=== PATIENT | female | born 1950 | race Caucasian/White ===

== ENCOUNTER 2017-09-11 07:10 | Emergency (ER) | payer OTHER, BC, MEDICARE ==
[~2017-09-11] VITALS: Ht 162.6 cm; Wt 56.2 kg
[~2017-09-11 07:10] MED LIST: ALBUTEROL 3 ML3 ML INH; ALPHA LIPOIC AC50 MG PO; AMITIZA8 MCG PO; AUGMENTIN 500M500 MG PO; BACLOFEN10 M1 PO; BENTYL10 M1 PO; BIAXIN FILMTAB500 MG PO; BOTOX200 UNIT IM; BUDESONIDE EC3 MG PO; CALCIUM 600600 M1 PO; CALCIUM600 M2 PO; CLOBETASOL PROP50 M1 TOP; COLACE100 M1 PO; CYMBALTA 30 MG30 MG PO; CYMBALTA60 M1 PO; Calcium Carbonate 600 MG Tab PO; DIAZEPAM2 M1 PO; DIAZEPAM2 MG PO; DILTIAZEM HCL30 M1 PO; DILTIAZEM HCL30 MG PO; EFFEXOR XR75 M1 PO; EFFEXOR-XR75 MG PO; FISH OIL 1,2001 EACH PO; FLUOCINOLON118.28 M1 TOP; GABAPENTIN100 M2 PO; GABAPENTIN600 M1 PO; LIDODERM 5% PAT1 PAT TOP; LIORESAL 10MG T10 MG PO; MASON NATURAL1200 MG PO; MIRALAX17 G1 PO; MODAFINIL200 M1 PO; MODAFINIL200 MG PO; MULTI-DAY VITA1 EACH PO; MULTIVITAMIN1 TAB PO; NIZORAL120 ML TOP; OMEPRAZOLE20 M2 PO; PHARMASSURE MA500 MG PO; PROBIOTIC FORMU1 CAP PO; PROBIOTIC1 EACH PO; SUPER B COMPLE150 MG PO; SYNTHROID0.05 MG PO; SYNTHROID50 MCG PO; TEGRETOL 100MG100 MG PO; TRAMADOL HCL50 M1 PO; VAGIFEM10 MC1 VAG; VAGIFEM10 MCG VAG; VITAMIN B-121000 MC3 PO; VITAMIN B121000 MC2 PO; VITAMIN B121000 MCG PO; VITAMIN D32000 I1 PO; VITAMIN D35000 UNI1 PO; WELLBUTRIN SR100 M2 PO; ZOFRAN ODT4 M1 SL
--- NOTE | 2017-09-11 07:25 | ED CARDIAC/CP/PALPITATIONS ---
History of Present Illness General Chief Complaint: Palpitations Stated Complaint: BIBA FOR PALP Source: patient, EMS Exam Limitations: no limitations Vital Signs & Intake/Output Vital Signs & Intake/Output Vital Signs Date Time Temp Pulse Resp B/P B/P Pulse O2 O2 Flow FiO2 Mean Ox Delivery Rate 09/11 1117 98.3 56 20 110/56 99 Room Air 09/11 0855 60 20 109/56 97 Room Air 09/11 0729 97.0 68 20 136/80 09/11 0714 97.0 136 20 130/86 100 Room Air Allergies Coded Allergies: epinephrine (Severe, "MAKES ME SICK" 04/04/16) Penicillins (RASH 08/29/15) gluten (GLUTEN SENSITIVE 08/29/15) lactose (LACTOSE INTOLERANT 08/29/15) Reconcile Medications Baclofen 20 MG TABLET 1 TAB PO TID MUSCLE SPASMS (Reported) Dextroamphetamine/Amphetamine (Dextroamp-Amphetamin 10 MG Tab) 10 MG TABLET 1 TAB PO BID MENTAL HEALTH (Reported) Diazepam 2 MG TABLET 0.5 TAB PO TID MUSCLE SPASMS/ANXIETY (Reported) Duloxetine HCl (Cymbalta) 60 MG CAPSULE.DR 1 CAP PO QAM MENTAL HEALTH ( Reported) Levothyroxine Sodium (Synthroid) 50 MCG TABLET 1 TAB PO DAILY AC THYROID ( Reported) Pantoprazole Sodium 40 MG TABLET.DR 1 TAB PO DAILY GI (Reported) Tramadol HCl 50 MG TABLET 1 TAB PO BID PAIN (Reported) Venlafaxine HCl (Effexor XR) 75 MG CAP.ER.24H 1 CAP PO QAM MENTAL HEALTH ( Reported) Triage Nurses Notes Reviewed? yes Onset: Abrupt Duration: hour(s):, constant, continues in ED, getting worse Quality/Severity: severe HPI: Patient presents for evaluation of worsening shortness of breath and heart palpitations that began earlier this morning. Patient states she's had a prior episode but not quite this intense. History is somewhat limited secondary to the patient's symptoms and also her history of multiple sclerosis with severe back pain. Past History Travel History Traveled to [place] past 21 day No Medical History Any Pertinent Medical History? 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 MOTHER (CJD). Hx Contributory? No Review of Systems Review of Systems Constitutional: Reports: no symptoms. EENTM: Reports: no symptoms. Respiratory: Reports: see HPI. Cardiovascular: Reports: see HPI. GI: Reports: no symptoms. Genitourinary: Reports: no symptoms. Musculoskeletal: Reports: see HPI. Skin: Reports: no symptoms. Neurological/Psychological: Reports: no symptoms. Hematologic/Endocrine: Reports: no symptoms. Immunologic/Allergic: Reports: no symptoms. All Other Systems: Reviewed and Negative Physical Exam Physical Exam Cardiovascular: see below Comments: Gen.: Well-nourished, well-developed, no acute respiratory distress. Head: Normocephalic, atraumatic. Eyes: Normal inspection bilaterally Ears: Normal inspection bilaterally Nose: Normal inspection Throat/mouth : Moist mucosa Neck: Supple, full range of motion, no goiter Heart: Rapid Regular rate and rhythm, no murmurs rubs or gallops Lungs: Clear to auscultation bilaterally with normal air entry Chest: Nontender Back: Normal range of motion Abdomen: Soft, nontender, nondistended, normal bowel sounds Extremities: Normal range of motion grossly, equal radial pulses, no cyanosis clubbing or edema Neurologic: Cranial nerves grossly intact, speech is clear Skin: warm and dry Psychiatric: Calm, cooperative, no apparent delusions or hallucinations Core Measures ACS in differential dx? No CVA/TIA Diagnosis No Sepsis Present: No Sepsis Focused Exam Completed? No Progress Differential Diagnosis: AMI, atrial fibrillation, hyperkalemia, pericarditis, PVCs/PACs Plan of Care: Orders Procedure Date/time Status Heart Healthy Diet 09/11 D Active TROPONIN LEVEL 09/11 1130 Complete EKG 09/11 1130 Active EKG 09/11 0724 Active THYROID STIMULATING HORMONE 09/11 0723 Complete TROPONIN LEVEL 09/11 0723 Complete T3 UPTAKE (THYROXINE BIND CAP) 09/11 0723 Complete THYROXINE 09/11 0723 Complete PARTIAL THROMBOPLASTIN TIME 09/11 722 Complete PROTHROMBIN TIME 09/11 722 Complete MAGNESIUM 09/11 722 Complete CBC WITHOUT DIFFERENTIAL 09/11 722 Complete BASIC METABOLIC PANEL 09/11 722 Complete EKG 09/11 710 Active Current Medications Sig/Merry Start time Last Medication Dose Stop Time Status Admin Sodium Chloride 1,000 ML ONCE ONE 09/11 07 AC 09/11 (Normal Saline 0.9%) 09/11 1409 0729 Laboratory Tests 09/11/17 1200: Troponin I 0.02 09/11/17 0758: Anion Gap 20 H, Estimated GFR > 60, BUN/Creatinine Ratio 22.0, Glucose 83, Calcium 7.9 L, Magnesium 2.0, Troponin I < 0.01, TSH 0.910, Thyroxine (T4) 11.3 H, Thyroxine Binding Indx 39.6, PT 11.8, INR 1.08, APTT 29, CBC w Diff NO MAN DIFF REQ, RBC 4.65, MCV 91.1, MCH 31.1 H, MCHC 34.1, RDW 12.5, MPV 7.9, Gran % 74.8, Lymphocytes % 19.0 L, Monocytes % 5.2, Eosinophils % 0.8, Basophils % 0.2 , Absolute Granulocytes 4.8, Absolute Lymphocytes 1.2, Absolute Monocytes 0.3, Absolute Eosinophils 0.1, Absolute Basophils 0 Diagnostic Imaging: Discussed w/RAD: Radiology Read. CXR Impression: PATIENT: ARLYN MENDES PRESENT AGE: 67 PATIENT ACCOUNT NO: [id number] : 48 LOCATION: [facility] ORDERING PHYSICIAN: Janes Castillo MD SERVICE DATE: 09/11/17 EXAM TYPE: RAD - XRY-PORTABLE CHEST XRAY EXAMINATION: XR PORTABLE CHEST CLINICAL INFORMATION: Palpitations. Dyspnea. COMPARISON: 07/15/2016 TECHNIQUE: Portable frontal view of the chest was obtained. FINDINGS: Cardiac leads overlie the chest. The lungs are well expanded. There is no focal consolidation, edema, or effusion. No pneumothorax. The cardiomediastinal silhouette is within normal limits. No acute osseous abnormality. IMPRESSION: No acute pulmonary findings. DICTATED BY: Lisa QUINN,Stalin DATE/TIME DICTATED:09/11/17822 SHEAR GRINDER OPERATOR HELPER:ROBERT DATE/ TIME TRANSCRIBED:09/11/17822 CONFIDENTIAL, DO NOT COPY WITHOUT APPROPRIATE AUTHORIZATION. <Electronically signed in Other Vendor System> SIGNED BY: Lisa QUINN,Stalin 09/11/17827 Initial ED EKG: SEE NOTES Repeat EKG: changed (NSR) Comments: 09/11/2017 7:23:49 AM patient's EKG revealed an atrial flutter with a ventricular rate of 130. Patient was given 5 mg of IV Lopressor prehospital. I ordered a second dose of 5 mg of IV Lopressor but after approximately 1 mg the patient is now converted back to a sinus rhythm. Repeat EKG will be obtained. 09/11/2017 7:30:54 AM patient is feeling better, back in normal sinus rhythm. 09/11/2017 9:12:36 AM I have updated Arlyn on her test results. Clinically she appears much more comfortable and is now quite conversant. Tramadol ordered for her back pain given the stability of her blood pressure. Patient's case discussed with Yogesh Méndez MD who recommends initiation of Eliquis and low-dose metoprolol. 09/11/2017 1:08:04 PM repeat EKG reveals nonspecific T-wave changes that were not present on the patient's prior EKG after resolution of the atrial flutter. Yogesh Méndez MD has been paged. 09/11/2017 1:15:54 PM Yogesh Méndez MD feels that given the nonspecific nature of the EKG changes and the fact that we will be initiating Eliquis and metoprolol, she can be discharged with outpatient follow-up. Departure Departure Disposition: HOME OR SELF CARE Condition: Stable Clinical Impression Primary Impression: Paroxysmal atrial flutter Referrals: Marco A Loyd DO (PCP/Family) Additional Instructions: Follow-up with your burn out scarfing operator on Thursday. Eliquis and metoprolol as prescribed. Avoid exertion until you see your burn out scarfing operator. Notify your primary care physician of this emergency department visit and treatment plan. Return if any concerns or sudden worsening. Please note that there might be incidental findings in your evaluation that are unrelated to the current emergency department visit. Please notify your primary care doctor about this emergency department visit in order to obtain and review all of the testing performed so that these incidental findings can be monitored as needed. If you had an x-ray performed, please understand that some fractures may not be seen on the initial set of x-rays. If your symptoms persist you might need a repeat set of x-rays to check for such a fracture. If you had a laceration evaluated, please understand that foreign bodies such as glass or wood may not be visible to the naked eye or on plain x-rays. If the wound becomes red, swollen, increasingly more painful or if there is any drainage from the wound, please have it reevaluated by a physician for the possibility of a retained foreign body. If you're unable to follow up as outlined in the discharge instructions please return to the emergency department. Thank you for choosing the [facility] Emergency Department for your care. It was a pleasure to serve you today. Janes Castillo M.D. [facility] Departure Forms: Customer Survey General Discharge Information Prescriptions: Current Visit Scripts Metoprolol Tartrate 0.5 TAB PO BID #15 TAB Apixaban (Eliquis) 1 TAB PO BID #60 TAB Critical Care Note Critical Care Note Critical Care Time: 30-74 min
[2017-09-11 08:05] LABS: ABSOLUTE BASOPHIL COUNT 0 /CUMM (0.0-0.2); ABSOLUTE EOSINOPHIL COUNT 0.1 /CUMM (0.0-0.7); ABSOLUTE GRANULOCYTE CT 4.8 /CUMM (1.4-6.5); ABSOLUTE LYMPH COUNT 1.2 /CUMM (1.2-3.4); ABSOLUTE MONOCYTE COUNT 0.3 /CUMM (0.10-0.60); BASOPHIL % 0.2 % (0.0-2.0); EOSINOPHIL % 0.8 % (0-5); GRANULOCYTE % 74.8 % (42.2-75.2); HEMATOCRIT 42.3 % (37-47); MEAN CORPUSCULAR HGB 31.1 PG (27.0-31.0); MEAN CORPUSCULAR HGB CONC 34.1 G/DL (33.0-37.0); MEAN CORPUSCULAR VOLUME 91.1 FL (81.0-99.0); MEAN PLATELET VOLUME 7.9 FL (7.4-10.4); PLATELET COUNT 302 /CUMM (130-400); RBC DISTRIBUTION WIDTH 12.5 % (11.5-14.5); RED BLOOD CELL CT 4.65 /CUMM (4.20-5.40); WHITE BLOOD CELL COUNT 6.4 /CUMM (4.8-10.8)
[2017-09-11] MEDS ORDERED: DEXTROAMP-AMPHE10 MG PO (08:10)
[2017-09-11] MEDS ORDERED: PANTOPRAZOLE SO40 M1 PO (08:12)
--- NOTE | 2017-09-11 08:28 | RADIOLOGY REPORT ---
EXAMINATION: XR PORTABLE CHEST CLINICAL INFORMATION: Palpitations. Dyspnea. COMPARISON: 07/15/2016 TECHNIQUE: Portable frontal view of the chest was obtained. FINDINGS: Cardiac leads overlie the chest. The lungs are well expanded. There is no focal consolidation, edema, or effusion. No pneumothorax. The cardiomediastinal silhouette is within normal limits. No acute osseous abnormality. IMPRESSION: No acute pulmonary findings.
[2017-09-11 08:30] LABS: PT 11.8 SEC (9.4-12.5); PTT 29 SEC (25-37)
[2017-09-11] MEDS ORDERED: ELIQUIS5 M1 PO (13:26)
[2017-09-11] MEDS ORDERED: METOPROLOL TART25 M1 PO (13:26)
[2017-09-11 13:36] VITALS: BP 114/66
== END 2017-09-11 13:38 ==
LOC: ERH 07:10
PROVIDERS: Emergency Medicine
DX: I48.0 Paroxysmal atrial fibrillation (principal); G35 Multiple sclerosis; E03.9 Hypothyroidism, unspecified; I48.92 Unspecified atrial flutter; R06.02 Shortness of breath
CPT/HCPCS: 71045; 93005; 93010; 96374

== ENCOUNTER 2017-12-21 08:38 | Emergency (ER) | payer OTHER, BC, MEDICARE ==
[~2017-12-21] VITALS: Ht 162.6 cm; Wt 46.5 kg
[~2017-12-21 08:38] MED LIST changes: +DEXTROAMP-AMPHE10 MG PO; +ELIQUIS5 M1 PO; +METOPROLOL TART25 M1 PO; +PANTOPRAZOLE SO40 M1 PO
--- NOTE | 2017-12-21 09:15 | ED GI/GU/ABDOMINAL COMPLAINT ---
History of Present Illness General Chief Complaint: General Adult Stated Complaint: +D AND WEIGHT LOSS FOR COUPLE MONTHS Source: patient, family, old records Exam Limitations: no limitations Vital Signs & Intake/Output Vital Signs & Intake/Output Vital Signs Date Time Temp Pulse Resp B/P B/P Pulse O2 O2 Flow FiO2 Mean Ox Delivery Rate 12/21 1038 84 18 129/58 97 Room Air 12/21 0942 98 Room Air 12/21 0841 96.8 76 18 119/76 98 Room Air Allergies Coded Allergies: epinephrine (Severe, "MAKES ME SICK" 04/04/16) Penicillins (RASH 08/29/15) gluten (GLUTEN SENSITIVE 08/29/15) lactose (LACTOSE INTOLERANT 08/29/15) Reconcile Medications Alpha Lipoic Acid 300 MG CAPSULE 1 CAP PO DAILY SUPPLEMENT (Reported) Apixaban (Eliquis) 5 MG TABLET 1 TAB PO BID ATRIAL FLUTTER Baclofen 10 MG TABLET 1 TAB PO 4 TIMES/DAY MUSCLE SPASMS (Reported) Biotin (Unknown Strength) CAPSULE (Unknown Dose) PO DAILY SUPPLEMENT ( Reported) Budesonide (Budesonide EC) 3 MG CAPDR...ER 1 CAP PO DAILY UNKNOWN (Reported) Calcium (Elemental-Fr Calcarb) (Calcium) 600 MG CALCIUM (1,500 MG) TABLET 1 TAB PO DAILY SUPPLEMENT (Reported) Cholecalciferol (Vitamin D3) (Vitamin D3) 5,000 UNIT TABLET 1 TAB PO DAILY VITAMIN SUPPORT (Reported) Dextroamphetamine/Amphetamine (Dextroamp-Amphetamin 10 MG Tab) 10 MG TABLET 0.5 TAB PO BID MENTAL HEALTH (Reported) Diazepam 2 MG TABLET 0.5 TAB PO TID MUSCLE SPASMS/ANXIETY (Reported) Duloxetine HCl (Cymbalta) 60 MG CAPSULE.DR 1 CAP PO QAM MENTAL HEALTH ( Reported) Estradiol (Vagifem) 10 MCG TABLET 1 TAB Q 2 WEEKS HORMONE (Reported) Hydrocodone/Acetaminophen (Hydrocodon-Acetaminophen 5-325) 5 MG-325 MG TABLET 1 TAB PO BID PAIN (Reported) Lactobacillus Acidophilus (Probiotic) 10 BILLION CELL CAPSULE 1 CAP PO DAILY GI (Reported) Levothyroxine Sodium (Synthroid) 50 MCG TABLET 1 TAB PO DAILY AC THYROID ( Reported) Mesalamine (Apriso) 0.375 GRAM CAP.ER.24H 2 CAP PO DAILY GI (Reported) Erin-3 Fatty Acids/Fish Oil (Fish Oil 1,000 MG Capsule) 340 MG-1,000 MG CAPSULE 1 CAP PO DAILY SUPPLEMENT (Reported) Pantoprazole Sodium 40 MG TABLET.DR 1 TAB PO DAILY GI (Reported) Tramadol HCl 50 MG TABLET 1 TAB PO BID PAIN (Reported) Venlafaxine HCl (Effexor XR) 75 MG CAP.ER.24H 1 CAP PO QAM MENTAL HEALTH ( Reported) Vitamin B Complex (B Complex) 1 EACH TABLET 1 TAB PO DAILY VITAMIN SUPPORT ( Reported) Triage Note: 67 YO FEMALE TO TRIAGE FOR EVAL OF +DIARRHEA AND WEIGHT LOSS FOR APPROX 2 MONTHS. PT REPORTS SHE STARTED WITH FOOD POISING 2 MONTHS AGO AND SINCE THEN IT HAS SEEN A STEADY DOWNHILL. REPROTS SHE HAS SEEN HER DR AND HAD BLOOD WORK DONE BUT THE DIARRHEA HAS GOTTEN WORSE OVER THE LAST COUPLE OF DAYS AND HER DR IS CURRENTLY AWAY. PT DENIES ANY APIN, REPORTS SLIGHT ABD CRAMPING WHEN SHE HAS TO USE THE BATRHOOM. Triage Nurses Notes Reviewed? yes ? n Is pt currently ? No Onset: Gradual Duration: week(s): Timing: recent history HPI: 67yo female with hx of MS, hypothyroidism, colitis, atrial flutter on eliquis presents to ED complaining of worsening diarrhea x 2 weeks with associated weight loss. Patient has hx of chronic diarrhea and constipation x 2.5 years for which she has seen a GI specialist for, Dr. Batista. Patient states she has had worsening diarrhea for the past several month since diagnosis of food poisoning with yessinia. Patient was treated with antibiotics and dietary changes as well as multiple medications through her GI specialist for diarrhea and states her symptoms improved. Recently the patient has had persistent diarrhea for 2 weeks whenever she tries to eat, she reports diminished appetite as a result. Patient reports weight loss of over 20 pounds over the past 2 months. Patient reports intermittent abdominal pains however currently no abdominal pain. Patient denies fevers, chills, nausea, vomiting, BRBPR. (Xochitl ZHAO,Mattie Penny) Past History Travel History Traveled to [place] past 21 day No Medical History Any Pertinent Medical History? 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 MOTHER (CJD). Hx Contributory? No (Mattie Crain) Review of Systems Review of Systems Constitutional: Reports: see HPI. EENTM: Reports: no symptoms. Respiratory: Reports: no symptoms. Cardiovascular: Reports: no symptoms. GI: Reports: see HPI. Genitourinary: Reports: no symptoms. Musculoskeletal: Reports: no symptoms. Skin: Reports: no symptoms. Neurological/Psychological: Reports: no symptoms. Hematologic/Endocrine: Reports: no symptoms. Immunologic/Allergic: Reports: no symptoms. All Other Systems: Reviewed and Negative (Mattie Crain) Physical Exam Physical Exam General Appearance: well developed/nourished, no apparent distress, alert, awake Head: atraumatic, normal appearance Eyes: Bilateral: normal appearance. Ears, Nose, Throat, Mouth: hearing grossly normal Neck: normal inspection, supple, full range of motion Respiratory: normal breath sounds, no respiratory distress, lungs clear Cardiovascular: regular rate/rhythm Gastrointestinal: normal bowel sounds, soft, no organomegaly, RUQ tenderness, no rebound or gaurding Back: normal inspection, normal range of motion Extremities: normal range of motion Neurologic/Psych: awake, alert, oriented x 3 Skin: intact, normal color, warm/dry Core Measures ACS in differential dx? No Sepsis Present: No Sepsis Focused Exam Completed? No (Mattie Crain) Progress Differential Diagnosis: cholecystitis, hepatitis, hernia, inflamm bowel dis, pancreatitis, pancreatic insufficiency, electrolyte abnormality, thyroid disease Plan of Care: Orders Procedure Date/time Status Add-on Test (ER Only) 12/21 0947 Active TROPONIN LEVEL 12/21 0928 Complete LIPASE 12/21 0928 Complete AMYLASE 12/21 0928 Complete EKG 12/21 0912 Active URINALYSIS 12/21 0853 Active THYROID STIMULATING HORMONE 12/21 0853 Complete MAGNESIUM 12/21 0853 Complete FREE T4 12/21 0853 Complete COMPREHENSIVE METABOLIC PANEL 12/21 0853 Complete CBC WITHOUT DIFFERENTIAL 12/21 0853 Complete Laboratory Tests 12/21/17 0928: Anion Gap 11, Estimated GFR > 60, BUN/Creatinine Ratio 28.0 H, Glucose 92, Calcium 8.5, Magnesium 2.1, Total Bilirubin 0.9, AST 18, ALT 27, Alkaline Phosphatase 59, Troponin I < 0.01, Total Protein 6.7, Albumin 3.9, Globulin 2.8, Albumin/Globulin Ratio 1.4, Amylase 69, Lipase 99, TSH 1.650, Free T4 2.28, CBC w Diff NO MAN DIFF REQ, RBC 4.51, MCV 92.1, MCH 30.6, MCHC 33.2, RDW 13.0, MPV 8.6, Gran % 60.2, Lymphocytes % 24.6, Monocytes % 13.9 H, Eosinophils % 1.0, Basophils % 0.3, Absolute Granulocytes 3.7, Absolute Lymphocytes 1.5, Absolute Monocytes 0.8 H, Absolute Eosinophils 0.1, Absolute Basophils 0 12/21/17 0912: Troponin I Cancelled Patient's weight in September when she was here was 124lbs. Today she reports her weight is 98lbs. Patient states her [facility] and she was told her calprotectin was elevated and her pancreatic elastase was low. 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 Likely largely responsible to patient's diarrhea and weight loss. Patient has mild hypokalemia. Medicated with IV fluids and oral potassium replacement. No other abnormalities and patient's labs that require emergent action. Patient laying in stretcher in no acute distress, tolerating PO here in the emergency Department. Patient is aren't been on several different specialists medications for her GI doctor for her diarrhea. Patient that given her history of atrophic pancrease her symptoms would require specialty follow up for further medication changes. Patient's GI doctor will be back next week. I encouraged patient to follow-up with her doctor and return if she has any worsening symptoms or concerns. Patient and family agree with plan of care. Discussed all findings with Dr. Salvador who agrees with this plan. Initial ED EKG: sinus rhythm @66bpm, artifact present, nonspecific ST changes Prior EKG: unchanged (09/11/17) (Xochitl ZHAO,Mattie Penny) Departure Departure Disposition: HOME OR SELF CARE Condition: Stable Clinical Impression Primary Impression: Diarrhea Qualifiers: Diarrhea type: unspecified type Qualified Code: R19.7 - Diarrhea, unspecified Secondary Impressions: Hypokalemia Referrals: Marco A Loyd DO (PCP/Family) Additional Instructions: Follow up with your GI doctor. Drink fluids and eat mild foods as tolerated, try dairy free nutritional drink if possible. Return with worsening symptoms or concerns. Please note that there might be incidental findings in your evaluation that are unrelated to the current emergency department visit. Please notify your primary care doctor about this emergency department visit in order to obtain and review all of the testing performed so that these incidental findings can be monitored as needed. If you had an x-ray performed, please understand that some fractures may not be seen on the initial set of x-rays. If your symptoms persist you might need a repeat set of x-rays to check for such a fracture. If you had a laceration evaluated, please understand that foreign bodies such as glass or wood may not be visible to the naked eye or on plain x-rays. If the wound becomes red, swollen, increasingly more painful or if there is any drainage from the wound, please have it reevaluated by a physician for the possibility of a retained foreign body. If you're unable to follow up as outlined in the discharge instructions please return to the emergency department. Thank you for choosing the [facility] Emergency Department for your care. It was a pleasure to serve you today. Departure Forms: Customer Survey General Discharge Information (Xochitl ZHAO,Mattie Penny) PA/ELECTRIC MOTOR WINDER Co-Sign Statement Statement: ED Attending supervision documentation- x I saw and evaluated the patient. I have also reviewed all the pertinent lab results and diagnostic results. I agree with the findings and the plan of care as documented in the PA's/ELECTRIC MOTOR WINDER's documentation. [] I have reviewed the ED Record and agree with the PA's/ELECTRIC MOTOR WINDER's documentation. [] Additions or exceptions (if any) to the PAs/ELECTRIC MOTOR WINDER's note and plan are summarized below: [] (Madeleine QUINN,[place])
[2017-12-21 10:02] LABS: ABSOLUTE BASOPHIL COUNT 0 /CUMM (0.0-0.2); ABSOLUTE EOSINOPHIL COUNT 0.1 /CUMM (0.0-0.7); ABSOLUTE GRANULOCYTE CT 3.7 /CUMM (1.4-6.5); ABSOLUTE LYMPH COUNT 1.5 /CUMM (1.2-3.4); ABSOLUTE MONOCYTE COUNT 0.8 /CUMM (0.10-0.60); BASOPHIL % 0.3 % (0.0-2.0); GRANULOCYTE % 60.2 % (42.2-75.2); HEMATOCRIT 41.6 % (37-47); MEAN CORPUSCULAR HGB 30.6 PG (27.0-31.0); MEAN CORPUSCULAR HGB CONC 33.2 G/DL (33.0-37.0); MEAN CORPUSCULAR VOLUME 92.1 FL (81.0-99.0); MEAN PLATELET VOLUME 8.6 FL (7.4-10.4); PLATELET COUNT 297 /CUMM (130-400); RED BLOOD CELL CT 4.51 /CUMM (4.20-5.40); WHITE BLOOD CELL COUNT 6.1 /CUMM (4.8-10.8)
[2017-12-21] MEDS ORDERED: HYDROCODON-ACE1 EAC2 PO (10:02)
[2017-12-21] MEDS ORDERED: BUDESONIDE EC3 MG PO (10:04)
[2017-12-21] MEDS ORDERED: APRISO0.375 G1 PO (10:04)
[2017-12-21] MEDS ORDERED: VAGIFEM10 MC1 (10:06)
[2017-12-21] MEDS ORDERED: PROBIOTIC1 EACH PO (10:06)
[2017-12-21] MEDS ORDERED: FISH OIL 1,0001 EACH PO (10:07)
[2017-12-21] MEDS ORDERED: VITAMIN D35000 UNI1 PO (10:07)
[2017-12-21] MEDS ORDERED: CALCIUM600 M3 PO (10:07)
[2017-12-21] MEDS ORDERED: ALPHA LIPOIC A300 MG PO (10:08)
[2017-12-21] MEDS ORDERED: B COMPLEX1 EACH PO (10:08)
[2017-12-21] MEDS ORDERED: BIOTIN5 M1 PO (10:09)
[2017-12-21 10:38] VITALS: BP 129/58
== END 2017-12-21 11:46 ==
LOC: ERH 08:38
PROVIDERS: Physician Assistant
DX: R19.7 Diarrhea, unspecified (principal); E87.6 Hypokalemia; R63.4 Abnormal weight loss; R10.9 Unspecified abdominal pain
CPT/HCPCS: 93005; 93010